=== PATIENT | female | born 1965 | race Caucasian/White ===

== ENCOUNTER 2018-07-11 05:25 | Inpatient (IN) ==
[2018-07-11] MEDS ORDERED: Chlorhexidine Gluconate 2% 1 Pack (2 Cloths) TOPICAL ONE (06:17)
[2018-07-11] MEDS ORDERED: Metoprolol Tartrate 25 MG Tablet PO ONE (06:17)
[2018-07-11] MEDS ORDERED: Scopalamine 1.5 MG Patch T-DERMAL SCH (06:30)
[2018-07-11] MEDS ORDERED: Sodium Chlor 0.9% Inj 500 ML IV.SIG SCH (07:00)
[2018-07-11] MEDS ORDERED: Sugammadex Inj 200 MG/2 ML Vial IV.PUSH ONE (08:23)
[2018-07-11] MEDS ORDERED: Bupivacaine/Epinephrine Inj 0.25% 50 ML Vial ONE (08:24)
[2018-07-11] MEDS ORDERED: Sodium Chlor 0.9% Inj 250 ML ONE (08:41)
[2018-07-11] MEDS ORDERED: Lidocaine PF 1% Inj 5 ML Syringe INFILTRATN ONE (08:45)
[2018-07-11] MEDS ORDERED: diphenhydrAMINE HCl 12.5 MG/5 ML Elixir UDC PO PRN (10:25)
[2018-07-11] MEDS ORDERED: Post-op Orders (for Pharmacy) OTHER STA (10:25)
[2018-07-11] MEDS ORDERED: Morphine Inj 30 MG/30 ML PCA.VIAL PCA PRN (10:31)
[2018-07-11] MEDS ORDERED: Naloxone Inj 0.4 MG/ML Vial IV.PUSH PRN (10:31)
[2018-07-11] MEDS ORDERED: *morphine SULFATE 4 MG/ML PERIprocedure ONLY ONE (10:46)
[2018-07-11] MEDS ORDERED: fentaNYL Citrate Inj 100 MCG/2 ML Ampul ONE ×2 (10:48)
[2018-07-11] MEDS ORDERED: Morphine Inj 4 MG/ML Vial ONE (10:49)
[2018-07-11] MEDS ORDERED: Morphine Inj 30 MG/30 ML PCA.VIAL PCA ONE (11:04)
[2018-07-11] MEDS ORDERED: Enoxaparin Inj 40 MG/0.4 ML Syringe ONE (11:23)
[2018-07-11] MEDS: KCL 20 mEq/NACL 0.45% Inj 1,000 ML IV.CONT SCH ×2 (11:32→17:39)
[2018-07-11] MEDS: Enoxaparin Inj 40 MG/0.4 ML Syringe SQ SCH ×2 (12:15→14:13)
[2018-07-11] MEDS ORDERED: Promethazine 25 MG Supp RECTAL PRN (14:05)
[2018-07-11] MEDS: PCA - Total MG Morphine Delevered per Shift MISCELLANE SCH ×2 (14:12→21:34)
[2018-07-11] MEDS ORDERED: Dextrose 50% in Water 50 ML Vial IV.PUSH PRN (19:40)
[2018-07-11] MEDS: Atenolol 50 MG Tablet PO SCH (20:57)
[2018-07-11] MEDS: Acetaminophen-HYDROcodone 325/7.5 Liq 15 ML UDC PO PRN (21:33)
[2018-07-11] MEDS ORDERED: Acetaminophen-HYDROcodone 325/7.5 Liq 15 ML UDC PO PRN (22:00)
[2018-07-12] MEDS: Insulin NovoLOG Aspart Correctional Sugar Inj SQ SCH ×3 (01:15→13:12)
[2018-07-12] MEDS: KCL 20 mEq/NACL 0.45% Inj 1,000 ML IV.CONT SCH (05:07)
[2018-07-12 05:08] LABS: Baso % (Auto) 0.2 % (0.0-2.0); Hematocrit 35.6 % (35.0-46.0); Lymph # (Auto) 0.8 th/mm3 (1.0-4.8); Mean Corpuscular HGB Conc 33.7 % (32.0-36.0); Mean Corpuscular Hemoglobin 29.2 pg (27.0-34.0); Mean Corpuscular Volume 86.6 fL (80.0-100.0); Mono # (Auto) 0.6 th/mm3 (0.0-0.9); Mono % (Auto) 6.7 % (0.0-8.0); Neut # (Auto) 7.2 th/mm3 (1.8-7.7); Neut % (Auto) 84.1 % (16.0-70.0); Platelet Count 332 th/mm3 (150-450); Red Blood Count 4.11 mil/mm3 (4.00-5.30); Red Cell Distribution Width 14.3 % (11.6-17.2); White Blood Count 8.6 th/mm3 (4.0-11.0)
[2018-07-12] MEDS: Acetaminophen-HYDROcodone 325/7.5 Liq 15 ML UDC PO PRN (05:17)
[2018-07-12] MEDS: PCA - Total MG Morphine Delevered per Shift MISCELLANE SCH ×2 (05:18→13:48)
[2018-07-12 05:34] LABS: Calcium 9.1 mg/dL (8.5-10.1); Carbon Dioxide 23.5 meq/L (21.0-32.0); Magnesium 2.4 mg/dL (1.5-2.5); Potassium 4.5 meq/L (3.5-5.1)
[2018-07-12] MEDS ORDERED: Levothyroxine 88 MCG Tablet PO SCH (06:00)
[2018-07-12 07:59] VITALS: RESP 16
[2018-07-12] MEDS ORDERED: amLODIPine 5 MG Tablet PO SCH (09:00)
[2018-07-12] MEDS: Atenolol 50 MG Tablet PO SCH (09:18)
[2018-07-12] MEDS: Enoxaparin Inj 40 MG/0.4 ML Syringe SQ SCH (16:16)
[2018-07-12 16:21] VITALS: BP 111/53; PULSE 58; TEMP 98.3; O2SAT 99
--- NOTE | 2018-07-19 20:03 | MP ---
cc: Froilan Dubois MD DATE OF OPERATION: 07/11/2018 PREOPERATIVE DIAGNOSIS: Morbid obesity with a BMI of 42, complicated by essential hypertension. POSTOPERATIVE DIAGNOSES: Morbid obesity with a BMI of 42, complicated by essential hypertension. PROCEDURE PERFORMED: Laparoscopic Philly-en-Y gastric bypass, 100 cm [place] limb, antegastric-antecolic. SURGEON: Froilan Dubois MD BELL HOLE DIGGER: MD Dr. Robert Alba's assistance was necessary for the procedure due to the complexity of the procedure, Dr. Jones assisted with and exposure during the procedure. The facilities maintenance assistant provided by [employer] was utilized at the back table. ANESTHESIA: General endotracheal anesthesia. ESTIMATED BLOOD LOSS: Scant. FINDINGS: Fatty liver. SPECIMENS: None. COMPLICATIONS: None. OPERATION: The patient was brought to the operating room and placed on the operating table in supine position, bilateral sequential inflation device placed on lower extremities, general anesthesia instituted, antibiotics initiated. The abdomen was prepped and draped sterilely. A point 18-cm distal to the xiphoid in the midline anesthetized with 0.25% Marcaine with epinephrine. The skin incision was made, a 5-mm OptiView port placed under direct vision and pneumoperitoneum was created. Under direct vision a 5-mm left upper quadrant, 12-mm left upper quadrant, 12-mm right upper quadrant and 5-mm right upper quadrant ports were placed. Prior to placement of all ports, the skin and peritoneum were anesthetized with 0.25% Marcaine with epinephrine. The patient's omentum was lifted into the upper abdomen. It was split down the middle to create a path for the Phil[place] limb. The ligament of Treitz was identified, a point 40 cm distal identified. The small bowel was divided in this region using an [place] Flex stapler vascular load reinforced with SeamGuard. The distal segment was brought up for a distance of 100 cm, enterotomy created in this region, enterotomy in the biliopancreatic limb and a fylf-af-erli stapled jejunojejunostomy created in the usual manner. The mesenteric defect at the jejunojejunostomy was closed with 2-0 Surgidac suture in a running manner. The patient was placed in reverse Trendelenburg position with the left side up. The [place]-Flex retractor was placed. The left lobe of the liver was retracted. The angle of His was taken down bluntly, a point 5 cm distal to the GE junction along the lesser curve identified, the lesser sac entered using blunt dissection. The stomach was partitioned horizontally using an [place]-Flex stapler blue load, an additional firing taken directed towards the angle of His to completely divide the stomach. A gastrotomy created in the new stomach, enterotomy in the [place] limb and gastrojejunostomy created, stomal opening of 2 cm. An 18-[place] orogastric tube was placed across the anastomosis, the defect then closed in two layers of running 2-0 Vicryl. Prior to placement of the second layer, methylene blue instilled through the orogastric tube. There was no evidence of extravasation. Evicel was then placed over the gastrojejunostomy, jejunojejunostomy and all staple lines. The operative field inspected and hemostasis was present. The CO2 was released, all ports were removed. All skin incisions were closed with 4-0 Monocryl. The abdominal wall was cleaned and a sterile dressing placed. The patient was awakened and taken to the recovery room. Froilan Dubois MD JLMicheal/maggy , 05:58 PM , 06:04 PM
== END 2018-07-12 17:19 | disposition home or self-care (01) ==
LOC: HSDI 05:25 → N07 12:55
PROVIDERS: ADMIT Surgery; ATTEND Surgery